=== PATIENT | male | born 1965 | race Caucasian/White ===

== ENCOUNTER 2020-10-12 12:34 | Emergency (ER) | payer BC, OTHER ==
--- NOTE | 2020-10-12 12:40 | EDM.PDOC ---
ED HPI GENERAL MEDICAL PROBLEM - General Chief Complaint: Abdominal Pain Stated Complaint: CHEST PAIN, CHILLS, VOMITING Time Seen by Provider: 10/12/20 12:39 Source of Information: Reports: Patient, RN, RN Notes Reviewed History Limitations: Reports: No Limitations - History of Present Illness INITIAL COMMENTS - FREE TEXT/NARRATIVE: Pt presents to ER by POV with c/o onset of upper abdominal pain this morning at 0930HRS. Shortly after the onset of pain the pt became nauseated and began to vomit and then "dry heave". The pain began to radiate into the chest, so he took antacids with not relief. Admits to some pain in the middle back. Denies radiation of pain to the shoulders, neck, or jaw. Denies diarrhea or dysuria. No history of abdominal surgeries. Duration: Constant Location: Reports: Chest, Abdomen Quality: Reports: Ache Severity: Moderate Improves with: Reports: None Worsens with: Reports: None Associated Symptoms: Reports: No Other Symptoms Epigastric Pain Score (Numeric/FACES): 5 - Related Data Allergies Allergy/AdvReac Type Severity Reaction Status Date / Time No Known Allergies Allergy Verified 10/12/20 12:55 Home Meds: Home Meds . [No Known Home Meds] 10/12/20 [History] Past Medical History - Past Health History Medical/Surgical History: Denies Medical/Surgical History Social & Family History - Family History Family Medical History: No Pertinent Family History - Living Situation & Occupation Living situation: Reports: Occupation: Other ([employer]) ED ROS GENERAL - Review of Systems Review Of Systems: Comprehensive ROS is negative, except as noted in HPI. ED EXAM, GENERAL - Physical Exam Exam: See Below Exam Limited By: No Limitations General Appearance: Alert, WD/WN, No Apparent Distress Eye Exam: Bilateral Eye: Normal Inspection (No scleral icterus) Nose: Normal Inspection Throat/Mouth: Normal Lips, Normal Voice, No Airway Compromise Head: Atraumatic, Normocephalic Neck: Normal Inspection, Supple, Non-Tender, Full Range of Motion Respiratory/Chest: No Respiratory Distress, Lungs Clear, Normal Breath Sounds, No Accessory Muscle Use, Chest Non-Tender Cardiovascular: Regular Rate, Rhythm GI/Abdominal: Normal Bowel Sounds, Soft, No Organomegaly, No Distention, No Abnormal Bruit, No Mass, Tender (Epigastric region). No: Guarding, Rigid, Rebound (Male) Exam: Deferred Rectal (Males) Exam: Deferred Back Exam: Normal Inspection, Full Range of Motion. No: CVA Tenderness (L), CVA Tenderness (R), Vertebral Tenderness Extremities: Normal Inspection Neurological: Alert, Oriented, CN II-XII Intact, Normal Cognition, Normal Gait, No Motor/Sensory Deficits Psychiatric: Normal Affect, Normal Mood Skin Exam: Warm, Dry, Intact, Normal Color, No Rash #1 Interpretation EKG Date: 10/12/20 Time: 12:46 Rhythm: Other (SR) Rate (Beats/Min): 69 [place]: Normal P-Wave: Present QRS: Other (Abnormal R-wave progression, early transition) ST-T: Normal QT: Normal Comparison: NA - No Prior EKG Course - Vital Signs Last Recorded V/S: Last Vital Signs Temp 97 F 10/12/20 12:40 Pulse 67 10/12/20 12:40 Resp 16 10/12/20 12:40 BP 179/88 H 10/12/20 13:07 Pulse Ox 100 10/12/20 12:40 - Orders/Labs/Meds Orders: Active Orders 24 hr Category Date Time Status EKG 12 Lead [EKG Documentation Completion] [RC] STAT Care 10/12/20 12:44 Active Peripheral IV Care [RC] . DIRECTED Care 10/12/20 12:44 Active Abdomen Ltd [US] Stat Exams 10/12/20 15:57 Taken Sodium Chloride 0.9% [Saline Flush] Med 10/12/20 12:44 Active 10 ml FLUSH ASDIRECTED PRN Peripheral IV Insertion Adult [OM.PC] Stat Oth 10/12/20 12:44 Ordered Medication Orders Sodium Chloride (Sodium Chloride 0.9% 10 Ml Syringe) 10 ml FLUSH ASDIRECTED PRN PRN Reason: Keep Vein Open Last Admin: 10/12/20 15:10 Dose: 10 ml Documented by: Admin: 10/12/20 14:28 Dose: 10 ml Documented by: Admin: 10/12/20 13:05 Dose: 10 ml Documented by: Admin: 10/12/20 13:03 Dose: 10 ml Documented by: DIANN Labs: Laboratory Tests 06/10/21 06/10/21 06/10/21 Range/Units 12:49 12:49 13:09 WBC 13.6 H (5.0-10.0) 10^3/uL RBC 4.78 (4.6-6.2) 10^6/uL Hgb 15.0 (14.0-18.0) g/dL Hct 45.0 (40.0-54.0) % MCV 94.1 (80-100) fL MCH 31.4 (27.0-34.0) pg MCHC 33.3 (33.0-35.0) g/dL Plt Count 380 (150-450) 10^3/uL Neut % (Auto) 86.5 H (42.2-75.2) % Lymph % (Auto) 8.8 L (20.5-50.1) % Pine % (Auto) 4.5 (2-8) % Eos % (Auto) 0.1 L (1.0-3.0) % Baso % (Auto) 0.1 (0.0-1.0) % D-Dimer, Quantitative 132 (0-400) ng/mL Sodium 140 (136-145) mmol/L Potassium 4.8 (3.5-5.1) mmol/L Chloride 104 (98-107) mmol/L Carbon Dioxide 29 (21-32) mmol/L Anion Gap 11.8 (7-13) mEq/L BUN 13 (7-18) mg/dL Creatinine 0.97 (0.70-1.30) mg/dL Est Cr Clr Drug Dosing 108.13 mL/min Estimated GFR (MDRD) > 60 BUN/Creatinine Ratio 13.4 (No establ ref range) Glucose 131 H (70-99) mg/dL Calcium 8.8 (8.5-10.1) mg/dL Total Bilirubin 0.3 (0.2-1.0) mg/dL AST 22 (15-37) U/L ALT 38 (16-63) U/L Alkaline Phosphatase 64 (46-116) U/L Troponin I High Sens 6 (<=76) pg/mL Total Protein 6.9 (6.4-8.2) g/dL Albumin 3.6 (3.4-5.0) g/dL Globulin 3.3 Albumin/Globulin Ratio 1.1 Amylase 39 (25-115) U/L Lipase 55 L (73-393) U/L Urine Color (YELLOW) Urine Appearance (CLEAR) Urine pH (5.0-9.0) Ur Specific [place] (1.005-1.030) Urine Protein (NEGATIVE) Urine Glucose (UA) (NEGATIVE) Urine Ketones (NEGATIVE) Urine Occult Blood (NEGATIVE) Urine Nitrite (NEGATIVE) Urine Bilirubin (NEGATIVE) Urine Urobilinogen (0.2-1.0) mg/dL Ur Leukocyte Esterase (NEGATIVE) 10/12/20 Range/Units 15:03 WBC (5.0-10.0) 10^3/uL RBC (4.6-6.2) 10^6/uL Hgb (14.0-18.0) g/dL Hct (40.0-54.0) % MCV (80-100) fL MCH (27.0-34.0) pg MCHC (33.0-35.0) g/dL Plt Count (150-450) 10^3/uL Neut % (Auto) (42.2-75.2) % Lymph % (Auto) (20.5-50.1) % Pine % (Auto) (2-8) % Eos % (Auto) (1.0-3.0) % Baso % (Auto) (0.0-1.0) % D-Dimer, Quantitative (0-400) ng/mL Sodium (136-145) mmol/L Potassium (3.5-5.1) mmol/L Chloride (98-107) mmol/L Carbon Dioxide (21-32) mmol/L Anion Gap (7-13) mEq/L BUN (7-18) mg/dL Creatinine (0.70-1.30) mg/dL Est Cr Clr Drug Dosing mL/min Estimated GFR (MDRD) BUN/Creatinine Ratio (No establ ref range) Glucose (70-99) mg/dL Calcium (8.5-10.1) mg/dL Total Bilirubin (0.2-1.0) mg/dL AST (15-37) U/L ALT (16-63) U/L Alkaline Phosphatase (46-116) U/L Troponin I High Sens (<=76) pg/mL Total Protein (6.4-8.2) g/dL Albumin (3.4-5.0) g/dL Globulin Albumin/Globulin Ratio Amylase (25-115) U/L Lipase (73-393) U/L Urine Color Yellow (YELLOW) Urine Appearance Clear (CLEAR) Urine pH 5.5 (5.0-9.0) Ur Specific [place] >= 1.030 (1.005-1.030) Urine Protein Negative (NEGATIVE) Urine Glucose (UA) Negative (NEGATIVE) Urine Ketones Negative (NEGATIVE) Urine Occult Blood Negative (NEGATIVE) Urine Nitrite Negative (NEGATIVE) Urine Bilirubin Negative (NEGATIVE) Urine Urobilinogen 0.2 (0.2-1.0) mg/dL Ur Leukocyte Esterase Negative (NEGATIVE) Meds: Medications Generic Name Dose Route Start Last Admin Trade Name Freq PRN Reason Stop Dose Admin Sodium Chloride 10 ml 10/12/20 12:44 10/12/20 15:10 Sodium Chloride 0.9% 10 Ml Syringe FLUSH 10 ml ASDIRECTED PRN Administration Keep Vein Open Discontinued Medications Generic Name Dose Route Start Last Admin Trade Name Freq PRN Reason Stop Dose Admin Hydromorphone HCl 1 mg 10/12/20 14:21 10/12/20 14:27 Hydromorphone 1 Mg/Ml Syringe IVPUSH 10/12/20 14:22 1 mg ONETIME ONE Administration Hydromorphone HCl 1 mg 10/12/20 15:57 10/12/20 16:12 Hydromorphone 1 Mg/Ml Syringe IVPUSH 10/12/20 15:58 1 mg ONETIME ONE Administration Sodium Chloride 1,000 mls @ 999 mls/hr 10/12/20 14:30 10/12/20 16:17 Normal Saline IV 10/12/20 15:30 Infused .BOLUS ONE Infusion Iopamidol 100 ml 10/12/20 14:30 10/12/20 14:51 Iopamidol 612 Mg/Ml 100 Ml Bottle IVPUSH 10/12/20 14:31 100 ml ONETIME ONE Administration Ondansetron HCl 4 mg 10/12/20 12:44 10/12/20 13:03 Ondansetron 4 Mg/2 Ml Sdv IV 10/12/20 12:45 4 mg ONETIME ONE Administration Ondansetron HCl 4 mg 10/12/20 15:57 10/12/20 16:12 Ondansetron 4 Mg/2 Ml Sdv IV 10/12/20 15:58 4 mg ONETIME ONE Administration - Re-Assessments/Exams Free Text/Narrative Re-Assessment/Exam: 10/12/20 16:53 Pt's pain is recurrent/persistent. US shows pericholecystic fluid, thickening of gallbladder wall, and multiple stones with a stone stuck in the GB neck. Departure - Departure Time of Disposition: 16:55 Disposition: DC/Tfer to [facility] 02 Condition: Fair Clinical Impression: Cholecystitis, Cholelithiasis and acute cholecystitis without obstruction - Discharge Information *PRESCRIPTION DRUG MONITORING PROGRAM REVIEWED*: Not Applicable *COPY OF PRESCRIPTION DRUG MONITORING REPORT IN PATIENT AHMET: Not Applicable Forms: ED Department Discharge, Interfacility Transfer EMTALA Sepsis Event Note (ED) - Focused Exam Vital Signs: Vital Signs Temp Pulse Resp BP Pulse Ox 10/12/20 13:07 179/88 H 10/12/20 12:40 97 F 67 16 191/85 H 100 - My Orders Last 24 Hours: My Active Orders 10/12/20 12:44 EKG 12 Lead [EKG Documentation Completion] [RC] STAT Peripheral IV Care [RC] . DIRECTED Sodium Chloride 0.9% [Saline Flush] 10 ml FLUSH ASDIRECTED PRN Peripheral IV Insertion Adult [OM.PC] Stat 10/12/20 15:57 Abdomen Ltd [US] Stat - Assessment/Plan Last 24 Hours: My Active Orders 10/12/20 12:44 EKG 12 Lead [EKG Documentation Completion] [RC] STAT Peripheral IV Care [RC] . DIRECTED Sodium Chloride 0.9% [Saline Flush] 10 ml FLUSH ASDIRECTED PRN Peripheral IV Insertion Adult [OM.PC] Stat 10/12/20 15:57 Abdomen Ltd [US] Stat
[2020-10-12] MEDS ORDERED: Ondansetron 4 MG/2 ML SDV IV ONE ×2 (12:44→15:57)
[2020-10-12] MEDS: Sodium Chloride 0.9% 10 ML Syringe FLUSH PRN ×4 (13:03→15:10)
[2020-10-12 13:35] LABS: ANION GAP 11.8 mEq/L (7-13); CHLORIDE,CL 104 mmol/L (98-107)
[2020-10-12 14:20] LABS: SODIUM,NA 140 mmol/L (136-145)
[2020-10-12] MEDS ORDERED: HYDROmorphone 1 MG/ML Syringe IVPUSH ONE ×2 (14:21→15:57)
[2020-10-12] MEDS ORDERED: Sodium Chloride 0.9% 1,000 ML IV ONE (14:30)
[2020-10-12] MEDS ORDERED: Iopamidol 612 MG/ML 100 ML Bottle IVPUSH ONE (14:30)
--- NOTE | 2020-10-12 15:02 | CR ---
EXAMINATION: Chest 1V Frontal SEX: Male AGE: 54 years CLINICAL HISTORY: 54-year-old male with chest pain. No comparison films immediately available at this institution. INTERPRETATION: No acute cardiopulmonary abnormality. 1. Evidence of old trauma left clavicle. Chronic hypertrophic arthritic changes dorsal spine. 2. Normal cardiac silhouette (size and configuration). No pulmonary vascular congestion, cephalization of flow, alveolar edema or dependent pleural effusion. 3. No lung mass or hilar lymphadenopathy. 4. No alveolar infiltrate, atelectasis/collapse, or peripheral "groundglass" interstitial lung densities. 5. No pneumothorax or pneumomediastinum. Midline tracheal bronchial airway unremarkable.
--- NOTE | 2020-10-12 15:22 | CT ---
EXAMINATION: Abdomen Pelvis w Cont SEX: Male AGE: 54 years CLINICAL HISTORY: 54-year-old male smoker in emergency department with upper abdominal pain, vomiting and abnormally elevated serum WBC (13,600). Scan technique: Volume acquisition of data from the abdomen and pelvis obtained without oral but during the intravenous infusion 100 cc nonionic Isovue contrast 3 cc/s via injector while patient was lying supine on the Siemens multislice scanner [place], [place]. All data archived in the PACS system for storage, reformatting axial/sagittal/coronal planes and study. Interpretation: Abnormal. 1. Cholelithiasis (multiple tiny gallstones "packed" into the gallbladder RUQ). 2. No pericystic fluid. No abnormal dilatation of the intra/extrahepatic biliary ducts, however, the gallbladder is distended suggesting *possible cystic duct stone impaction. No stones identified in the extrahepatic common bile duct (CBD). 3. Liver, stomach, spleen, pancreas and adrenal glands anatomically correct. Normal kidneys. No renal cortical mass lesion, nephrolithiasis or obstructive uropathy. Symmetrically distended normal unenhanced urinary bladder. 4. No abdominal or pelvic mass lesion. No inflammatory "dirty" peritoneal fat, ventral wall hernia, signs of mechanical bowel obstruction, ascites or free intraperitoneal air. Sigmoid diverticulosis. 5. Lung bases clear. Normal cardiac silhouette. No pericardial or pleural effusions. 6. Normal caliber abdominal aorta. No aneurysm or peritoneal dissection. Lumbar spine unremarkable. CONCLUSION: Diseased gallbladder. Sigmoid diverticulosis. Emergency CT abdomen/pelvis otherwise negative.
--- NOTE | 2020-10-12 17:05 | US ---
PROCEDURE INFORMATION: Exam: US Abdomen, Limited; Right Upper Quadrant Exam date and time: 10/12/2020 4:14 PM Age: 54 years old Clinical indication: Abdominal pain; Acute; Additional info: Ruq pain, gallstones TECHNIQUE: Imaging protocol: US abdomen. Real time ultrasound with image documentation. Limited exam focused on the right upper quadrant. Total images: 71 COMPARISON: CT Abdomen Pelvis w Cont 10/12/2020 2:41 PM FINDINGS: Liver: The liver is diffusely echogenic. Gallbladder: Multiple shadowing gallstones identified. There may be stones in the region of the neck of the gallbladder. Gallbladder wall slightly prominent measuring approximately 5 mm. There may be some pericholecystic edema and or tiny amount of adjacent fluid. Common bile duct: Common bile duct 6 mm. Pancreas: Pancreas is obscured by bowel gas. Right kidney: No right renal hydronephrosis. IMPRESSION: 1. Multiple gallstones with minimally thickened gallbladder wall and some possible adjacent edema. Correlate clinically to exclude acute cholecystitis. If indicated, nuclear medicine imaging may be helpful. 2. Hepatic steatosis.
== END 2020-10-12 17:09 ==
LOC: DL.ED 12:34
DX: K80.00 Calculus of gallbladder with acute cholecystitis without obstruction (principal)
CPT/HCPCS: 36415; 71045; 74177; 76705; 80053; 81003; 82150; 83690; 84484; 85025; 85379; 93005; 93010; 96374; 96375; 96376; 99284; 99284-25; J1170; J2405; J7030; Q9967